=== PATIENT | male | born 1995 | race Caucasian/White ===

== ENCOUNTER 2016-08-28 09:52 | Emergency (ER) | payer BC, OTHER ==
[2016-08-28 10:16] VITALS: BP 130/82
--- NOTE | 2016-08-28 12:04 | UC ---
Skin Complaint HPI - HPI Summary HPI Summary: pt c/o onset of small non tender,erythematous area that began 3 days ago at base of penis. Denies STD exposure, does reports shaving pubic area. - History of Current Complaint Chief Complaint: UCSkin Time Seen by Provider: 08/28/16 11:40 Stated Complaint: SKIN COMPLAINT Hx Obtained From: Patient Onset/Duration: Sudden Onset, Lasting Days Timing: Constant Onset Severity: Mild Current Severity: Mild Location: Other - base of penis Character: Redness, Raised Aggravating: Touch Alleviating: Nothing Associated Signs & Symptoms: Positive: Tenderness - Allergy/Home Medications Allergies/Adverse Reactions: Allergies Allergy/AdvReac Type Severity Reaction Status Date / Time No Known Allergies Allergy Verified 08/28/16 10:09 Home Medications: Home Medications Aspirin [Aspirin Adult Low Dose] 81 mg PO DAILY 08/28/16 [History Confirmed 11/08] Biotin 5 mg PO DAILY 08/28/16 [History Confirmed 08/28/16] Cholecalciferol [Vitamin D3] 5,000 unit PO DAILY 08/28/16 [History Confirmed 11/08] [place]-3 Fatty Acids [Fish Oil] 1,000 mg PO DAILY 08/28/16 [History Confirmed 11/08] [id number] [DAY TIME/NITE TIME COLD (Liquid)] 1 mis PO BID PRN 08/28/16 [History Confirmed 08/28/16] Review of Systems Constitutional: Negative Skin: Rash Eyes: Negative ENT: Negative Respiratory: Negative Cardiovascular: Negative Gastrointestinal: Negative Genitourinary: Negative Motor: Negative Neurovascular: Negative Musculoskeletal: Negative Neurological: Negative Psychological: Negative All Other Systems Reviewed And Are Negative: Yes PMH/Surg Hx/FS Hx/Imm Hx Previously Healthy: Yes - Surgical History Surgical History: None - Family History Known Family History: Positive: Other - denies FMH folliculitis - Social History Lives: With Family Alcohol Use: Occasionally Substance Use Type: None Smoking Status (MU): Never Smoked Tobacco Physical Exam Triage Information Reviewed: Yes Appearance: Well-Appearing Vital Signs: Initial Vital Signs Temp 97.7 F 08/28/16 10:12 Pulse 98 08/28/16 10:12 Resp 14 08/28/16 10:12 BP 130/82 08/28/16 10:12 Pulse Ox 98 02/04/17 10:12 Vital Signs Reviewed: Yes ENT Exam: Normal Neck exam: Normal Respiratory Exam: Normal Cardiovascular Exam: Normal Musculoskeletal Exam: Normal Neurological Exam: Normal Psychological Exam: Normal Skin: Positive: rashes - small, pin prick size erythematous, "pimple" like area at base of penis Course/Dx - Differential Diagnoses - Skin Complaint Differential Diagnoses: Impetigo, Tinea, Other - Folliculitis, herpes, syphilis - Diagnoses Provider Diagnoses: folliculitis Discharge - Discharge Plan Condition: Stable Disposition: HOME Patient Education Materials: Folliculitis (ED) Referrals: [facility] [Outside] Non Staff,Doctor [Primary Care Provider] -
== END 2016-08-28 12:02 | disposition home or self-care (01) ==
LOC: UCCORT 09:52
DX: L73.9 Follicular disorder, unspecified (principal); Z79.82 Long term (current) use of aspirin
CPT/HCPCS: 99201; G0463

== ENCOUNTER 2016-09-19 11:49 | Emergency (ER) | payer BC, OTHER ==
--- NOTE | 2016-09-19 13:29 | UC ---
Lower Extremity/Ankle HPI - HPI Summary HPI Summary: pt reports playing rugby on 09/17/16 and states that another player dove for the ball and slid along the ground and his shoulder hit the pt's laft lateral ankle/ heel. - History of Current Complaint Chief Complaint: UCLowerExtremity Stated Complaint: LT ANKLE INJURY Time Seen by Provider: 09/19/16 13:01 Hx Obtained From: Patient Onset/Duration: Sudden Onset Severity Initially: Moderate Severity Currently: Mild Aggravating Factor(s): Standing, Ambulation Alleviating Factor(s): Rest, Elevation Able to Bear Weight: Yes - Risk Factors Gout Risk Factors: Male - Allergies/Home Medications Allergies/Adverse Reactions: Allergies Allergy/AdvReac Type Severity Reaction Status Date / Time No Known Allergies Allergy Verified 09/19/16 13:06 PMH/Surg Hx/FS Hx/Imm Hx Previously Healthy: Yes - Surgical History Surgical History: None - Family History Known Family History: Positive: Other - denies FMH folliculitis - Social History Occupation: Student Alcohol Use: Occasionally Substance Use Type: None Smoking Status (MU): Never Smoked Tobacco Review of Systems Constitutional: Negative Skin: Bruising - left lateral ankle/heel Eyes: Negative ENT: Negative Respiratory: Negative Cardiovascular: Negative Gastrointestinal: Negative Genitourinary: Negative Motor: Negative Neurovascular: Negative Musculoskeletal: Edema - left lateral malleolous, Myalgia - left lateral ankle/ heel Neurological: Negative Psychological: Negative All Other Systems Reviewed And Are Negative: Yes Physical Exam Triage Information Reviewed: Yes Appearance: Well-Appearing Vital Signs: Initial Vital Signs Temp 97.4 F 09/19/16 13:07 Pulse 54 09/19/16 13:07 Resp 16 09/19/16 13:07 BP 137/79 09/19/16 13:07 Pulse Ox 99 09/19/16 13:07 Vital Signs Reviewed: Yes Eye Exam: Normal Respiratory Exam: Normal Musculoskeletal: Positive: Edema @ - left lateral malleolous Neurological Exam: Normal Psychological Exam: Normal Skin Exam: Other - bruising left lateral heel/ankle Lower Extremity Course/Dx - Differential Dx/Diagnosis Differential Diagnosis/HQI/PQRI: Contusion, Fracture (Closed), Sprain Provider Diagnoses: left ankle sprain. left heel contusion Discharge - Discharge Plan Condition: Stable Disposition: HOME Patient Education Materials: Ankle Sprain (ED), Ankle Exercises (GEN), Foot Contusion (ED) Referrals: Non Staff,Doctor [Primary Care Provider] - Tino Garcia MD [Medical Doctor] -
--- NOTE | 2016-09-19 13:52 | RAD ---
INDICATION: Left ankle injury COMPARISON: None TECHNIQUE: AP, lateral, and oblique views were obtained. FINDINGS: There is no acute fracture or dislocation. There is lateral soft tissue swelling. IMPRESSION: NO ACUTE FRACTURE.
[2016-09-19 14:23] VITALS: BP 120/69
== END 2016-09-19 14:15 | disposition home or self-care (01) ==
LOC: UCCORT 11:49
DX: S93.402A Sprain of unspecified ligament of left ankle, initial encounter (principal); S90.32XA Contusion of left foot, initial encounter; W50.0XXA Accidental hit or strike by another person, initial encounter; Y93.63 Activity, rugby; Y92.328 Other athletic field as the place of occurrence of the external cause
CPT/HCPCS: 99212; G0463

== ENCOUNTER 2016-11-03 10:42 | Emergency (ER) | payer BC ==
[2016-11-03 11:16] VITALS: BP 116/61
--- NOTE | 2016-11-03 11:18 | UC ---
FLU HPI - HPI Summary HPI Summary: Sore throat and body aches chills for 2 days. - History of Current Complaint Chief Complaint: UCGeneralIllness Stated Complaint: THROAT Time Seen by Provider: 11/03/16 11:12 Hx Obtained From: Patient Onset/Duration: Sudden Onset, Lasting Days - 2, Still Present Severity Currently: Moderate Severity Initially: Moderate Pain Intensity: 5 Pain Scale Used: 0-10 Numeric Associated Signs & Symptoms: Positive: Fever - subjective, Myalgia, Sore Throat Related Hx: Possible Flu/Infectious Exposure - attends [facility] - Allergy/Home Medications Allergies/Adverse Reactions: Allergies Allergy/AdvReac Type Severity Reaction Status Date / Time No Known Allergies Allergy Verified 11/03/16 11:11 Home Medications: Home Medications Naproxen TAB* [Naprosyn 250 mg TAB*] 250 mg PO Q8H PRN 11/03/16 [History Confirmed 11/03/16] PMH/Surg Hx/FS Hx/Imm Hx Previously Healthy: Yes - Surgical History Surgical History: None - Family History Known Family History: Positive: Other Family History: no medical issues reported in family lineage - Social History Occupation: Student Lives: With Family Alcohol Use: Weekly Substance Use Type: None Smoking Status (MU): Never Smoked Tobacco Review of Systems Constitutional: Chills Skin: Negative Eyes: Negative ENT: Sore Throat Respiratory: Negative Cardiovascular: Negative Gastrointestinal: Negative Genitourinary: Negative Motor: Negative Neurovascular: Negative Musculoskeletal: Myalgia Neurological: Negative Psychological: Negative All Other Systems Reviewed And Are Negative: Yes Physical Exam Triage Information Reviewed: Yes Appearance: Well-Nourished, Ill-Appearing - mild, Pain Distress - mild Vital Signs: Initial Vital Signs Temp 99.6 F 11/03/16 11:12 Pulse 87 11/03/16 11:12 Resp 16 11/03/16 11:12 BP 116/61 11/03/16 11:12 Pulse Ox 98 11/03/16 11:12 Vital Signs Reviewed: Yes Eye Exam: Normal Eyes: Positive: Conjunctiva Clear ENT Exam: Normal ENT: Positive: Normal ENT inspection, Hearing grossly normal, Pharyngeal erythema, TMs normal, Tonsillar swelling, Tonsillar exudate. Negative: Nasal congestion, Nasal drainage, Trismus, Muffled/hoarse voice Dental Exam: Normal Neck exam: Normal Neck: Positive: Supple, Nontender, Enlarged Nodes @ - anterior cervical Respiratory Exam: Normal Respiratory: Positive: Chest non-tender, Lungs clear, Normal breath sounds, No respiratory distress, No accessory muscle use Cardiovascular Exam: Normal Cardiovascular: Positive: RRR, No Murmur, Pulses Normal, Brisk Capillary Refill Musculoskeletal Exam: Normal Musculoskeletal: Positive: Strength Intact, ROM Intact, No Edema Neurological Exam: Normal Neurological: Positive: Alert, Muscle Tone Normal Psychological Exam: Normal Skin Exam: Normal Diagnostics - Laboratory Diagnostic Studies Completed/Ordered: RST (-), Influenza A/B (-) Flu Course/Dx - Course Course Of Treatment: preednisone, increase fluids, follow with [facility] , otc medications for symptoms relief - Differential Dx/Diagnosis Differential Diagnosis/HQI/PQRI: Influenza, Upper Respiratory Infection, Other - viral illness, mono, Provider Diagnoses: Viral pharyngitis Discharge - Discharge Plan Condition: Stable Disposition: HOME Prescriptions: predniSONE TAB* [Deltasone TAB*] 50 mg PO DAILY #4 tab Patient Education Materials: Viral Syndrome (ED), Pharyngitis (ED) Referrals: Non Staff,Doctor [Primary Care Provider] - 3 Days Additional Instructions: Follow up in 3-4 days at [facility] office for re-evaluation or return here should symptoms worsen or fail to improve. [place] is certainly still a possibility and I recommend no contact sports until we are sure you do not have this viral illness
[2016-11-03] MEDS ORDERED: Acetaminophen TAB* 325 MG PO ONE (11:22)
== END 2016-11-03 12:29 | disposition home or self-care (01) ==
LOC: UCCORT 10:42
DX: J02.9 Acute pharyngitis, unspecified (principal); R50.9 Fever, unspecified
CPT/HCPCS: 87502; 87651; 99212; A9270-GY; G0463

== ENCOUNTER 2018-06-05 07:37 | Emergency (ER) | payer BC ==
[2018-06-05 07:55] VITALS: BP 138/78
[2018-06-05] MEDS ORDERED: Albuterol 2.5 MG/3 ML NEB.SOL* (0.083%) INH ONE (08:32)
--- NOTE | 2018-06-05 08:34 | UC ---
UC General HPI - HPI Summary HPI Summary: FEVER 102.7, COUGH, MORALES. NO CP OR ASTHMA. IB [employer] OF [employer]NER[employer]IPS - History of Current Complaint Chief Complaint: UCGeneralIllness Stated Complaint: FEVER, BODY ACHES Time Seen by Provider: 06/05/18 08:26 Hx Obtained From: Patient Onset/Duration: Sudden Onset Timing: Constant Pain Intensity: 4 Associated Signs & Symptoms: Positive: Cough, Fever, SOB - Allergy/Home Medications Allergies/Adverse Reactions: Allergies Allergy/AdvReac Type Severity Reaction Status Date / Time No Known Allergies Allergy Verified 06/05/18 07:55 Home Medications: Home Medications Ibuprofen 200 mg PO DAILY 06/05/18 [History Confirmed 06/05/18] PMH/Surg Hx/FS Hx/Imm Hx Previously Healthy: Yes - Surgical History Surgical History: None - Family History Known Family History: Positive: Other Negative: Hypertension Family History: no medical issues reported in family lineage - Social History Occupation: Employed Part-time, Student Alcohol Use: Weekly Substance Use Type: None Smoking Status (MU): Never Smoked Tobacco - Immunization History Hx Tetanus, Diphtheria Vaccination: No Vaccination Up to Date: Yes Review of Systems All Other Systems Reviewed And Are Negative: Yes Constitutional: Positive: Fever, Chills Skin: Positive: Negative Eyes: Positive: Negative ENT: Positive: Negative Respiratory: Positive: Shortness Of Breath, Cough Cardiovascular: Positive: Negative Gastrointestinal: Positive: Negative Genitourinary: Positive: Negative Motor: Positive: Negative Neurovascular: Positive: Negative Musculoskeletal: Positive: Myalgia Neurological: Positive: Negative Psychological: Positive: Negative Is Patient Immunocompromised?: No Physical Exam Triage Information Reviewed: Yes Appearance: Ill-Appearing - BUT NON TOXIC Vital Signs: Initial Vital Signs Temp 98.3 F 06/05/18 07:51 Pulse 100 06/05/18 07:51 Resp 18 06/05/18 07:51 BP 138/78 06/05/18 07:51 Pulse Ox 98 06/05/18 07:51 Vital Signs Reviewed: Yes Eyes: Positive: Conjunctiva Inflamed ENT: Positive: Pharynx normal, TMs normal. Negative: Nasal congestion, Nasal drainage Neck: Positive: Supple, Nontender, No Lymphadenopathy Respiratory: Positive: Lungs clear, No respiratory distress, Decreased breath sounds, Other: - NPC Cardiovascular: Positive: RRR, No Murmur, Brisk Capillary Refill Abdomen Description: Positive: Nontender, No Organomegaly, Soft Bowel Sounds: Positive: Present Musculoskeletal: Positive: ROM Intact Neurological: Positive: Alert Psychological: Positive: Age Appropriate Behavior Skin Exam: Other - WARM AND FLUSHED Diagnostics - Laboratory Diagnostic Studies Completed/Ordered: rapid flu is negative. - Radiology No standard instances Radiology Interpretation Completed By: Radiologist - cxr=LEFT MIDLUNG CONSOLIDATION Re-Evaluation - Re-Evaluation First Eval Re-Evaluation Time: 09:25 Change: Improved - much better aeration Course/Dx - Course Course Of Treatment: rapid flu is neg. infiltrate on cxr but non toxic and not hypoxic thus appropriate for put pt tx. - Differential Dx - Multi-Symptom Provider Diagnoses: pneumonia Discharge - Sign-Out/Discharge Documenting (check all that apply): Patient Departure All imaging exams completed and their final reports reviewed: Yes - Discharge Plan Condition: Stable Disposition: HOME Prescriptions: Albuterol HFA INHALER* [Ventolin HFA Inhaler*] 2 puff INH Q6H #1 mdi DOXYcycline CAP(*) [DOXYcycline 100MG CAP(*)] 100 mg PO BID 10 Days #20 cap Patient Education Materials: Community Acquired Pneumonia (ED) Forms: *School Release, *Work Release Referrals: [facility] [Outside] Additional Instructions: FOLLOW UP FOR A RECHECK IN 5-7 DAYS. GO TO THE ER FOR ANY WORSENING. - Billing Disposition and Condition Condition: STABLE Disposition: Home
== END 2018-06-05 09:37 | disposition home or self-care (01) ==
LOC: UCCORT 07:37
DX: J18.9 Pneumonia, unspecified organism (principal)
CPT/HCPCS: 71046; 99212; G0463